=== PATIENT | male | born 1975 | race Caucasian/White ===

== ENCOUNTER → 2023-12-16 | Outpatient (CLI) | payer SELFPAY ==
[2023-12-16 07:04] LABS: BASOPHIL % 0.2 % (0.0-0.2); EOSINOPHIL # 0.1 10^3/uL (0.0-0.2); EOSINOPHIL % 1.7 % (0.0-5.0); HEMATOCRIT(ML) 48.1 % (37.0-53.0); HEMOGLOBIN 16.1 g/dL (13.9-16.3); IG % 0.7 % (0.00-0.50); LYMPHOCYTES # 3.12 10^3/uL1 (1.0-4.8); LYMPHOCYTES % 38.8 % (24.0-44.0); MEAN CORP HGB 30.9 pg (26-34); MEAN CORP HGB CONCENTRATION 33.5 g/dL (33-36.5); MEAN CORP VOLUME 92.3 fL (78-100); MONOCYTES # 0.8 10^3/uL (0.3-0.8); MONOCYTES % 9.4 % (5.0-12.0); NEUTROPHILS % 49.2 % (41.0-85.0); RED BLOOD CELL 5.21 10^6/uL (4.50-5.90); RED CELL DISTRIBUTION WIDTH 12.3 % (11.5-14.5); WHITE BLOOD CELL 8.1 10^3/uL (4.5-11.0)
[2023-12-16 07:44] LABS: ALBUMIN(ML) 3.8 g/dL (3.4-5.0); ALBUMIN/GLOBULIN RATIO 1.085; ANION GAP 12.8; BUN/CREATININE RATIO 12.29 (10.0-20.0); CARBON DIOXIDE 26.8 mmol/L (20.0-32); CREATININE SERUM 1.22 mg/dL (0.59-1.40); EST GFR, NON-AA 63.9 (>/=60); LDL/HDL RATIO 2.6; POTASSIUM 4.6 mmol/L (3.6-5.2)
== END | disposition home or self-care (01) ==
LOC: LAB 12-15 12:33
PROVIDERS: ATTEND Surgery
DX: I10 Essential (primary) hypertension (principal)
CPT/HCPCS: 36415; 80053; 80061; 82306; 83036; 84153; 84436; 84443; 85025